=== PATIENT | female | born 1990 ===

== ENCOUNTER 2021-01-10 20:33 | Emergency (ER) | payer SELFPAY ==
[~2021-01-10] VITALS: Ht 165.1 cm; Wt 66.2 kg
[2021-01-10 20:34] VITALS: BP 139/73
[2021-01-10] MEDS ORDERED: PREN1CHW PO (20:40)
== END 2021-01-10 21:26 | disposition left against medical advice (07) ==
LOC: M ED 20:33
DX: Z53.29 Procedure and treatment not carried out because of patient's decision for other reasons (principal)

== ENCOUNTER 2021-07-20 07:45 | Outpatient (CLI) | payer OTHER, SELFPAY ==
[~2021-07-20] VITALS: Ht 165.1 cm; Wt 75.4 kg
[~2021-07-20 07:45] MED LIST: PREN1CHW PO
[2021-07-20 08:07] VITALS: BP 111/59
[2021-07-20] MEDS ORDERED: HOME MED LIST COMPLETE! XX SCH (09:30)
== END 2021-07-20 09:00 | disposition home or self-care (01) ==
LOC: M LDO 07:45
PROVIDERS: ATTEND Registered Nurse
DX: O36.8130 Decreased fetal movements, third trimester, not applicable or unspecified (principal); Z3A.31 31 weeks gestation of pregnancy
CPT/HCPCS: 59025; G0378; G0463

== ENCOUNTER 2021-09-01 16:22 | Outpatient (CLI) | payer OTHER ==
[~2021-09-01] VITALS: Ht 165.1 cm; Wt 81.8 kg
[2021-09-01 16:38] VITALS: BP 110/67
[2021-09-01] MEDS ORDERED: BENA25CA4 PO (16:43)
== END 2021-09-01 17:12 | disposition home or self-care (01) ==
LOC: M LDO 16:22
PROVIDERS: ATTEND Obstetrics & Gynecology
DX: O36.8130 Decreased fetal movements, third trimester, not applicable or unspecified (principal); Z3A.37 37 weeks gestation of pregnancy; Z79.899 Other long term (current) drug therapy
CPT/HCPCS: 59025; 76815; G0463

== ENCOUNTER 2021-09-12 13:56 | Outpatient (CLI) | payer OTHER ==
[~2021-09-12] VITALS: Ht 165.1 cm; Wt 83.0 kg
[~2021-09-12 13:56] MED LIST changes: +BENA25CA4 PO
[2021-09-12 14:24] VITALS: BP 122/74
[2021-09-12] MEDS ORDERED: HOME MED LIST COMPLETE! XX SCH (14:25)
== END 2021-09-12 15:00 | disposition home or self-care (01) ==
LOC: M LDO 13:56
PROVIDERS: ATTEND Obstetrics & Gynecology
DX: O36.8130 Decreased fetal movements, third trimester, not applicable or unspecified (principal); Z3A.39 39 weeks gestation of pregnancy
CPT/HCPCS: 59025; G0463

== ENCOUNTER 2021-09-15 19:09 | Outpatient (CLI) | payer OTHER ==
[~2021-09-15] VITALS: Ht 165.1 cm; Wt 82.1 kg
[2021-09-15 19:30] VITALS: BP 129/73
[2021-09-15] MEDS ORDERED: HOME MED LIST COMPLETE! XX SCH (19:40)
== END 2021-09-15 20:17 | disposition home or self-care (01) ==
LOC: M LDO 19:09
PROVIDERS: ATTEND Obstetrics & Gynecology
DX: O26.893 Other specified pregnancy related conditions, third trimester (principal); N89.8 Other specified noninflammatory disorders of vagina; Z3A.39 39 weeks gestation of pregnancy
CPT/HCPCS: 59025; G0463